=== PATIENT | male | born 1975 | race Caucasian/White ===

== ENCOUNTER 2017-09-16 01:24 | Emergency (ER) | payer OTHER, BC ==
[2017-09-16 01:35] VITALS: BP 143/92
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
--- NOTE | 2017-09-16 07:12 | CR ---
Left shoulder: Three views of the left shoulder were obtained. Comparison: Prior left shoulder study of 12/07/15. Acromioclavicular and glenohumeral joints are within normal limits. Minimal deformity of the left fourth rib is seen compatible with fracture, possibly acute. No fracture or other abnormality is identified. Impression: 1. Mild deformity of the fourth left rib possibly due to acute rib fracture. Please correlate if patient has correlating symptoms. Finding could also be old. 2. Left shoulder study is otherwise unremarkable. Diagnostic code #1
== END 2017-09-16 02:39 | disposition home or self-care (01) ==
LOC: JD.ED 01:24
DX: M75.22 Bicipital tendinitis, left shoulder (principal); F17.210 Nicotine dependence, cigarettes, uncomplicated; Z79.899 Other long term (current) drug therapy
CPT/HCPCS: 73030-26-LT; 73030-LT; 99283